=== PATIENT | female | born 1945 | race Two or more races ===

== ENCOUNTER 2017-03-01 18:41 | Emergency (ER) | payer OTHER ==
[~2017-03-01] VITALS: Ht 154.9 cm; Wt 78.5 kg
[~2017-03-01 18:41] MED LIST: ALEN70TA55 PO; AMLO5TAB2 PO; BENA40TA7; CALC-317 OR; CHOL1000; CHOL20007 PO; FOLI1TAB6; HYDR200T OR; HYDR25TA4 PO; METF-370 PO; METH2.5T3; OMEP20CA74 PO; TRAM50TA2 PO
[2017-03-01 19:24] LABS: Urine Bilirubin Negative (Negative); Urine Blood TRACE /uL (Negative); Urine Color Yellow (Yellow); Urine Glucose Normal (Normal); Urine Ketone Negative (Negative); Urine Mucus FEW (None Seen); Urine Nitrite Negative (Negative); Urine RBC 3 /hpf (0 - 4); Urine Squamous Epithelial Cell FEW /hpf (<5); Urine Urobilinogen Normal (Negative)
[2017-03-01 19:55] LABS: Basophils # (auto) 0 uL; Basophils % (auto) 0.5 % (0.0-2.0); CONDITION Y; Eosinophils # (auto) 0.1 uL; Eosinophils % (auto) 0.9 % (0.0-7.0); Hematocrit 37.5 % (36.0-46.0); Hemoglobin 12.7 g/dL (12.2-16.2); Lymphocytes # (auto) 1.3 uL; Lymphocytes % (auto) 21.6 % (10.0-50.0); Mean Corpuscular Hemoglobin 31.5 pg (28.0-32.0); Mean Corpuscular Hgb Conc. 33.8 g/dL (32.0-36.0); Mean Platelet Volume 7.9 fL (7.4-10.4); Monocytes # (auto) 0.3 uL; Monocytes % (auto) 5.4 % (0.0-12.0); Neutrophils # (auto) 4.4 uL; Neutrophils % (auto) 71.6 % (37.0-80.0); Platelet Count (auto) 381 10^3/uL (140-450); Red Cell Distribution Width 14.3 % (11.6-16.0); White Blood Cell 6.1 10^3/uL (4.4-10.8)
[2017-03-01 20:09] LABS: Albumin 3.8 g/dL (3.4-5.0); BUN/Creatinine Ratio 21.1; Calcium 8.3 mg/dL (8.5-10.1); Potassium 3.7 mmol/L (3.5-5.1)
[2017-03-01 20:12] LABS: Bilirubin, Total 0.3 mg/dL (0.2-1.0); Total Protein 7.3 g/dL (6.4-8.2)
[2017-03-01 21:02] VITALS: BP 150/74
== END 2017-03-01 21:17 | disposition home or self-care (01) ==
LOC: ER 18:52
DX: N39.0 Urinary tract infection, site not specified (principal); E11.9 Type 2 diabetes mellitus without complications; K21.9 Gastro-esophageal reflux disease without esophagitis; M81.0 Age-related osteoporosis without current pathological fracture; M06.9 Rheumatoid arthritis, unspecified; E78.5 Hyperlipidemia, unspecified; I10 Essential (primary) hypertension; Z88.0 Allergy status to penicillin; Z79.899 Other long term (current) drug therapy; Z87.440 Personal history of urinary (tract) infections; Z98.890 Other specified postprocedural states
CPT/HCPCS: 36415; 80053; 81001; 85025; 87086; 87088; 87186; 99284; J7030

== ENCOUNTER 2017-03-17 10:49 | Emergency (ER) | payer OTHER ==
[~2017-03-17] VITALS: Ht 154.9 cm; Wt 78.5 kg
[2017-03-17] MEDS ORDERED: ETOMIDATE (2MG/ML) 20ML VIAL IV ONE ×2 (12:30→15:15)
[2017-03-17] MEDS ORDERED: SODIUM CHLORIDE 0.9% 1,000 ML IV SCH (14:14)
[2017-03-17] MEDS ORDERED: MORPHINE SULFATE 4 MG/ML SYRG IV PRN (14:15)
[2017-03-17] MEDS ORDERED: DEXTROSE (50%) 50ML SYRG IV PRN (14:15)
[2017-03-17] MEDS ORDERED: ACETAMINOPHEN 500 MG TAB PO PRN ×2 (14:15)
[2017-03-17] MEDS ORDERED: TEMAZEPAM 15 MG CAP PO PRN (14:15)
[2017-03-17] MEDS ORDERED: MORPHINE SULF INJ 2 MG/ML SYRINGE 1ML IV PRN ×2 (14:15)
[2017-03-17] MEDS ORDERED: KETOROLAC TROMETH 30 MG/ML 1ML VIAL IV ONE (14:15)
[2017-03-17] MEDS ORDERED: NITROGLYCERIN 0.4 MG SL TAB SL PRN (14:15)
[2017-03-17] MEDS ORDERED: LORazepam 0.5 MG TAB PO PRN (14:15)
[2017-03-17] MEDS ORDERED: HYDROcodone-ACET 5/325MG TAB PO PRN ×2 (14:15)
[2017-03-17] MEDS ORDERED: LACTULOSE 20Gm/30ML SOLN PO PRN (14:15)
[2017-03-17] MEDS ORDERED: PROMETHAZINE HCL 25 MG/ML 1ML IV PRN (14:15)
[2017-03-17 14:29] LABS: Basophils # (auto) 0 uL; Basophils % (auto) 0.2 % (0.0-2.0); Eosinophils # (auto) 0 uL; Eosinophils % (auto) 0.1 % (0.0-7.0); Hematocrit 36.4 % (36.0-46.0); Hemoglobin 12.8 g/dL (12.2-16.2); Lymphocytes # (auto) 1.4 uL; Mean Corpuscular Hemoglobin 31.9 pg (28.0-32.0); Mean Corpuscular Hgb Conc. 35.1 g/dL (32.0-36.0); Mean Corpuscular Volume 90.7 fL (80.0-100.0); Mean Platelet Volume 7.2 fL (7.4-10.4); Monocytes # (auto) 0.6 uL; Neutrophils # (auto) 6.5 uL; Neutrophils % (auto) 76.7 % (37.0-80.0); Platelet Count (auto) 279 10^3/uL (140-450); Red Cell Distribution Width 13.8 % (11.6-16.0); White Blood Cell 8.5 10^3/uL (4.4-10.8)
[2017-03-17 14:54] LABS: Albumin 3.7 g/dL (3.4-5.0); BUN/Creatinine Ratio 21.9; Bilirubin, Total 0.5 mg/dL (0.2-1.0); Calcium 8.1 mg/dL (8.5-10.1); Total Protein 6.8 g/dL (6.4-8.2)
[2017-03-17] MEDS ORDERED: MIDAZOLAM HCL 1MG/1ML-2 ML VIAL IV ONE (15:15)
[2017-03-17 15:16] LABS: Potassium 2.8 mmol/L (3.5-5.1)
[2017-03-17 15:41] LABS: Urine Bilirubin Negative (Negative); Urine Blood 1+ /uL (Negative); Urine Color Yellow (Yellow); Urine Glucose Normal (Normal); Urine Ketone Negative (Negative); Urine Nitrite Negative (Negative); Urine RBC 5 /hpf (0 - 4); Urine Squamous Epithelial Cell FEW /hpf (<5); Urine Urobilinogen Normal (Negative); Urine pH 7.5 (5.0-8.0)
[2017-03-17] MEDS ORDERED: POTASSIUM CHL 20 Meq TABLET PO ONE (16:00)
[2017-03-17] MEDS: POTASSIUM CHL 20MEQ/100ML 100 ML IV SCH ×2 (16:55→18:57)
[2017-03-17] MEDS ORDERED: ACCU-CHEK COMFORT CURVE STRIP VI SCH (17:00)
[2017-03-17] MEDS ORDERED: InsuLIN REG 1unit/0.01ml Soln (100units/ml) SC SCH (17:00)
[2017-03-17 19:25] VITALS: BP 132/78
[2017-03-17] MEDS ORDERED: HYDROXYCHLOROQUINE SULFATE 200 MG TAB PO SCH (22:00)
[2017-03-18] MEDS ORDERED: amLODIPine BESYLATE 5 MG TAB PO SCH (10:00)
[2017-03-18] MEDS ORDERED: PATIENTS OWN MEDICATION (Cholecalciferol (Vitamin D3) 1,000 UNIT) PO SCH (10:00)
[2017-03-18] MEDS ORDERED: BENAZEPRIL HCL 10 MG TAB PO SCH (10:00)
[2017-03-18] MEDS ORDERED: PANTOPRAZOLE 40 MG TAB PO SCH (10:00)
== END 2017-03-17 21:43 | disposition home or self-care (01) ==
LOC: ER 10:49
DX: S43.004A Unspecified dislocation of right shoulder joint, initial encounter (principal); E11.9 Type 2 diabetes mellitus without complications; I10 Essential (primary) hypertension; Z88.0 Allergy status to penicillin; X58.XXXA Exposure to other specified factors, initial encounter; Y93.89 Activity, other specified; Y99.8 Other external cause status; Y92.89 Other specified places as the place of occurrence of the external cause
CPT/HCPCS: 23650; 36415; 73020; 73030; 80053; 81001; 83036; 85025; 96365; 96366; 96375; 99152; 99285; J1885; J2250; J3480; J7030